=== PATIENT | female | born 1955 | race Caucasian/White ===

== ENCOUNTER → 2018-04-09 | Outpatient (CLI) | payer MEDICARE, OTHER ==
[~2018-04-09] MED LIST: ALEVE220 MG PO; ASPIR 8181 M1 PO; DICLOFENAC SODI75 MG PO; EFFEXOR XR37.5 MG PO; GARLIC1000 MG PO; LIPITOR 20 MG T20 M1 PO; LISINOPRIL20 MG PO; NEURONTIN 400400 M1 PO; PERCOCET 10-321 EACH PO; RESTORIL30 MG PO; ROPINIROLE HCL2 MG PO; VITAMIN C WITH500 MG PO; VITAMIN D3400 UNIT PO
== END ==
LOC: M.MRI 08:02
DX: M47.897 Other spondylosis, lumbosacral region (principal)

== ENCOUNTER 2018-05-04 17:05 | Inpatient (IN) | payer MEDICARE, OTHER ==
[~2018-05-04] VITALS: Ht 154.9 cm; Wt 94.3 kg
[2018-05-04 17:10] VITALS: BP 119/65
[2018-05-04] MEDS ORDERED: ALEVE220 MG PO (17:21)
[2018-05-04] MEDS ORDERED: LISINOPRIL20 MG PO (17:21)
[2018-05-04] MEDS ORDERED: EFFEXOR XR37.5 MG PO (17:21)
[2018-05-04] MEDS ORDERED: VITAMIN D3400 UNIT PO (17:22)
[2018-05-04] MEDS ORDERED: DICLOFENAC SODI75 MG PO (17:22)
[2018-05-04] MEDS ORDERED: NEURONTIN 400400 M1 PO (17:22)
[2018-05-04] MEDS ORDERED: GARLIC1000 MG PO (17:22)
[2018-05-04] MEDS ORDERED: RESTORIL30 MG PO (17:23)
[2018-05-04] MEDS ORDERED: PERCOCET 10-321 EACH PO (17:23)
[2018-05-04] MEDS ORDERED: VITAMIN C WITH500 MG PO (17:23)
[2018-05-04 17:26] LABS: ABSOLUTE EOSINOPHILS 0.1 thou/uL (0.0-0.7); ABSOLUTE LYMPHOCYTES 1.4 thou/uL (0.8-5.3); ABSOLUTE MONOCYTES 0.3 thou/uL (0.0-1.2); ABSOLUTE NEUTROPHILS 3.3 thou/uL (1.6-8.1); BASOPHILS 0.5 %; EOSINOPHILS 2.8 %; HEMATOCRIT 38.7 % (37.0-47.0); HEMOGLOBIN 12.6 gm/dL (12.0-15.0); LYMPHOCYTES 26.9 %; MCH 29.9 pg (26.0-34.0); MCHC 32.6 g/dL (28.0-37.0); MCV 91.6 fL (80.0-100.0); MONOCYTES 5.4 %; MPV 8.4 fl. (7.2-11.1); NUCLEATED RBCS 0 /100WBC; PLATELET COUNT* 160 thou/uL (150-400); POLYS 64.4 %; RBC 4.22 mil/uL (4.20-5.00); WBC 5.2 thou/uL (4.0-11.0)
[2018-05-04 17:35] LABS: ANION GAP 7 mmol/L (7-16); BUN 17 mg/dL (7-18); CALCIUM 9.4 mg/dL (8.5-10.1); CHLORIDE 103 mmol/L (98-107); CO2 32 mmol/L (21-32); CREATININE 1.1 mg/dL (0.6-1.3); GLUCOSE 101 mg/dL (70-99); POTASSIUM 3.9 mmol/L (3.5-5.1); SODIUM 142 mmol/L (136-145)
[2018-05-04 17:37] LABS: APTT 25.7 Seconds (25.0-31.3); PROTIME 10.1 Seconds (9.20-11.50)
[2018-05-04 17:51] LABS: ALBUMIN 3.9 g/dL (3.4-5.0); ALKALINE PHOSPHATASE 81 U/L (46-116); CK-MB MASS 2.9 ng/mL (<0.5-3.6); LIPASE 192 U/L (73-393); MAGNESIUM 1.9 mg/dL (1.8-2.4); NT-PRO BRAIN NAT PEPTIDE 285 pg/mL (<300); SGOT 32 U/L (15-37); SGPT 34 U/L (30-65); TOTAL BILIRUBIN 0.5 mg/dL (<0.1-1.0); TOTAL PROTEIN 7.4 g/dL (6.4-8.2); TROPONIN-I LEVEL <0.06 ng/mL (<0.06)
[2018-05-04 19:01] VITALS: BP 123/68
[2018-05-04 19:10] VITALS: BP 107/60
[2018-05-04] MEDS ORDERED: ROPINIROLE HCL2 MG PO (19:37)
[2018-05-04 22:48] LABS: CHOLESTEROL 232 mg/dL (<200); HDL CHOLESTEROL 44 mg/dL (>40); LDL CHOLESTEROL 145 mg/dL (<100); SERUM ASSESSMENT Clear; TC:HDL 5.3 Ratio (Not establshd); TRIGLYCERIDE 216 mg/dL (<150); VLDL 43 mg/dL (<40)
[2018-05-05] VITALS: BP 122/60
[2018-05-05 04:00] VITALS: BP 119/58; BP 124/71
[2018-05-05 08:05] VITALS: BP 113/61
[2018-05-05] MEDS ORDERED: LIPITOR 20 MG T20 M1 PO (11:22)
[2018-05-05] MEDS ORDERED: ASPIR 8181 M1 PO (11:22)
--- NOTE | 2018-05-05 15:30 | 2DMMODE ---
[place] [address] 2 D/M-MODE ECHOCARDIOGRAM Name: JARRED DE LEÓN Room: [address] ADM IN [facility]#: [id number] Admission: 05/04/18 Attend Phys: Danna Tsang Discharge: Date of : 53 Date of Service: 05/05/18 1530 Report #: [id number] THIS REPORT FOR: //name// APPROVED REPORT Study performed: 05/05/2018 14:29:48 EXAM: Comprehensive 2D, Doppler, and color-flow Echocardiogram Patient Location: In-Patient Room #: [facility] Status: routine BSA: 1.92 HR: 60 bpm BP: 113/61 mmHg Other Information Study Quality: Fair Indications Dyspnea 2D Dimensions IVSd: 11.01 (7-11mm) LVOT Diam: 20.11 (18-24mm) LVDd: 53.70 mm PWd: 9.27 (7-11mm) Ascending Ao: 32.93 (22-36mm) LVDs: 27.87 (25-40mm) Aortic Root: 25.98 mm Volumes Left Atrial Volume (Systole) LA ESV Index: 18.10 mL/m2 Aortic Valve AoV Peak Angus.: 1.61 m/s AO Peak Gr.: 10.33 mmHg LVOT Max P.82 mmHg AO Mean Gr.: 5.47 mmHg LVOT Mean P.70 mmHg LVOT Max V: 1.21 m/s AO V2 VTI: 33.88 cm LVOT Mean V: 0.74 m/s PRISCILLA (VTI): 2.70 cm2 LVOT V1 VTI: 28.81 cm Mitral Valve E/A Ratio: 0.91 MV Decel. Time: 140.89 ms MV E Max Angus.: 0.65 m/s MV PHT: 40.[place] [address] 2 D/M-MODE ECHOCARDIOGRAM Name: JARRED DE LEÓN Room: [address] IN .R.#: [id number] Admission: 05/04/18 Attend Phys: Danna Tsang Discharge: Date of : 53 Date of Service: 05/05/18 1530 Report #: [id number] MVA (PHT): 5.38 cm2 TDI E/Lateral E': 5.91 E/Medial E': 7.22 Medial E' Angus.: 0.09 m/s Lateral E' Angus.: 0.11 m/s Pulmonary Valve PV Peak Angus.: 0.86 m/s PV Peak Gr.: 2.99 mmHg Tricuspid Valve RAP Estimate: 5.00 mmHg TR Peak Gr.: 23.50 mmHg RVSP: 28.50 mmHg PA Pressure: 28.50 mmHg Left Ventricle The left ventricle is normal size. There is normal LV segmental wall motion. There is normal left ventricular wall thickness. Left ventricular systolic function is normal. The left ventricular ejection fraction is within the normal range. LVEF is 55-60%. The left ventricular diastolic function is normal. Right Ventricle The right ventricle is normal size. The right ventricular systolic function is normal. Atria The left atrium size is normal. The right atrium size is normal. Aortic Valve The aortic valve is normal in structure. No aortic regurgitation is present. There is no aortic valvular stenosis. Mitral Valve The mitral valve is normal in structure. There is no mitral valve regurgitation noted. No evidence of mitral valve stenosis. Tricuspid Valve The tricuspid valve is normal in structure. Mild tricuspid regurgitation. Pulmonic Valve The pulmonary valve is normal in structure. There is no pulmonic [place]vular [place] [address] 2 D/M-MODE ECHOCARDIOGRAM Name: JARRED DE LEÓN Room: [address] IN [facility]#: [id number] Admission: 05/04/18 Attend Phys: Danna Tsang Discharge: Date of : 53 Date of Service: 05/05/18 1530 Report #: [id number] Great Vessels The aortic root is normal in size. IVC is normal in size and collapses >50% with inspiration. Pericardium There is no pericardial effusion. <Conclusion> The left ventricle is normal size. There is normal left ventricular wall thickness. Left ventricular systolic function is normal. The left ventricular ejection fraction is within the normal range. LVEF is 55-60%. The left ventricular diastolic function is normal. The right ventricle is normal size. The left atrium size is normal. The aortic valve is normal in structure. The mitral valve is normal in structure. The tricuspid valve is normal in structure. IVC is normal in size and collapses >50% with inspiration. There is no pericardial effusion. There is normal LV segmental wall motion. <ELECTRONICALLY SIGNED> By: Darian Seals MD, FACC 05/05/18 153 29 29 Darian Seals MD, FACC /INF
[2018-05-05 16:00] VITALS: BP 114/80
--- NOTE | 2018-05-05 16:14 | EKG ---
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1955 Requested By: Orlando Ly Order Number: [id number] MD: Darian Seals Measurements Intervals [place] Rate: 66 P: 45 PA: 65 QRS: -29 QRSD: 103 T: 32 QT: 409 QTc: 429 Interpretive Statements Sinus rhythm Short PA interval Borderline left axis deviation Low voltage, precordial leads Baseline wander in lead(s) V1 No previous ECG available for comparison Electronically Signed On 05-05-2018 16:14:31 [employer] by Darian Seals [email or web address] <ELECTRONICALLY SIGNED> By: Darian Seals MD, [facility] 05/05/18 1614 171 171 Darian Seals MD, [facility] /EPI
--- NOTE | 2018-05-05 16:17 | EKG ---
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 : 1955 Requested By: Orlando Ly Order Number: [id number] Lena MD: Darian Seals Measurements Intervals [place] Rate: 57 P: -28 OR: 118 QRS: -28 QRSD: 101 T: -26 QT: 461 QTc: 449 Interpretive Statements Sinus rhythm Borderline short OR interval Borderline left axis deviation Low voltage, precordial leads Consider anterior infarct Borderline T abnormalities, inferior leads Lead(s) II were not used for morphology analysis Baseline wander in lead(s) V5 No previous ECG available for comparison Electronically Signed On 05-05-2018 16:17:38 [employer]HOU[employer] by Darian Seals [email or web address] <ELECTRONICALLY SIGNED> By: Darian Seals MD, FACC 05/05/18 1617 0113 Darian Seals MD, FACC /EPI
[2018-05-05 17:07] LABS: GLYCOHEMOGLOBIN (HGB A1C) 5.7 % (4.8-5.6)
[2018-05-05 20:00] VITALS: BP 111/63
[2018-05-06] VITALS: BP 109/59
[2018-05-06 04:00] VITALS: BP 107/54
[2018-05-06 08:00] VITALS: BP 105/49
[2018-05-06 12:00] VITALS: BP 108/61
[2018-05-06 16:00] VITALS: BP 118/68
--- NOTE | 2018-05-06 17:26 | CARDNUC ---
[place] [address] CARDIAC NUCLEAR IMAGING REPORT Name: JARRED DE LEÓN Room: [address] IN [facility]#: [id number] Admission: 05/04/18 Attend Phys: Danna Tsang Discharge: Date of : 53 Date of Service: 05/06/18 1726 Report #: [id number] THIS REPORT FOR: //name// APPROVED REPORT Imaging Protocol: Stress Tc-99m/Rest Tc-99m 2 days Study performed: 05/04/2018 21:31:00 Indication: Chest pain Patient Location: In-Patient Room #: 206 Stress Tech: Christy Lewis Stress Nurse: Eli Roman RN NM Tech:TOREY Wilcox Ht: 5 ft 1 in Wt: 210 lbs BSA: 1.93 m2 BMI: 39.67 Medical History Medical History: hypertension Medications: lisinopril Allergies: sulfa Cardiac Risk Factors: age, hypertension, family hx Previous Cardiac Procedures: none Exercise History: Sedentary Resting Data Rest SPECT myocardial perfusion imaging was performed in supine position 30 minutes following the intravenous injection of 38.8 mCi of Tc-99m Sestamibi. Time of rest injection: 1000 Date: 05/06/2018 Time of rest imagin The images were gated to evaluate regional wall motion and calculate left ventricular ejection fraction. Administration Route: IV Administration Site: Left Arm Pharmacologic Stress Pharmacologic stress test was performed by injecting Regadenoson 0.4 mg IV push over 10-15 seconds immediately followed by the intravenous injection of 36.2 mCi of Tc-99m Sestamibi. Time of stress injection: 1210 Date: 05/05/2018 Time of stress imagin Administration Route: IV Administration Site: [place] [address] CARDIAC NUCLEAR IMAGING REPORT Name: JARRED DE LEÓN Room: [address] IN M.R.#: [id number] Admission: 05/04/18 Attend Phys: Danna Tsang Discharge: Date of : 53 Date of Service: 05/06/18 1726 Report #: [id number] Gated Stress SPECT was performed 40 minutes after stress injection. The images were gated to evaluate regional wall motion and calculate left ventricular ejection fraction. Prone imaging was performed. Stress Test Details Stress Test: Pharmacologic stress testing performed using 0.4 mg of regadenoson per 5 mL given IV over 10 seconds. Reason for pharmacologic stress test: physical limitation. HR Max Heart Rate (APMHR): 156 bpm Resting HR: 61 bpm Target HR (85% APMHR): 132 bpm Max HR Achieved: 83 bpm % of APMHR: 53 Recovery HR: 81 bpm BP Resting BP: 138/85 mmHg Max BP: 130/67 mmHg Recovery BP: 137/72 mmHg ECG Resting ECG: Sinus Rhythm, normal EKG Stress ECG: Sinus Rhythm, normal EKG ST Change: None Arrhythmia: None Recovery ECG: Sinus Rhythm, normal EKG Recovery ST Change: None Recovery Arrhythmia: None Clinical Reason for Termination: Completed protocol The patient tolerated Lexiscan without significant symptoms. Nurse Comments pt has bad back and legs Stress ECG Conclusion The baseline 12-lead EKG shows normal sinus rhythm with no significant ST or T wave abnormality. EKGs post exercise showed sinus rhythm with no significant ST or T wave changes when compared to baseline. Study Quality Study: Good Artifact: [place] [address] CARDIAC NUCLEAR IMAGING REPORT Name: JARRED DE LEÓN Room: [address] IN [facility]#: [id number] Admission: 05/04/18 Attend Phys: Danna Tsang Discharge: Date of : 53 Date of Service: 05/06/18 1726 Report #: [id number] Study Data At rest, the left ventricular ejection fraction was 73%.. Post stress, the left ventricular ejection was 66%.. Perfusion Normal left ventricular perfusion. Wall Motion Normal left ventricular wall motion. Nuclear Conclusion ECG Findings: negative for ischemia Clinical Findings: negative for ischemia Nuclear Findings: negative for ischemia Exercise Capacity: not assessed Left Ventricular Function: normal Risk Study: low Myocardial perfusion images show normal perfusion at rest and post stress. Gated images show normal left ventricular systolic function. This is a low risk. <Conclusion> The baseline 12-lead EKG shows normal sinus rhythm with no significant ST or T wave abnormality. EKGs post exercise showed sinus rhythm with no significant ST or T wave changes when compared to baseline. <ELECTRONICALLY SIGNED> By: Tico Coulter MD, FACC 05/06/181725 25 25 Tico Coulter MD, FACC /INF
[2018-05-06 18:09] VITALS: BP 118/68
== END 2018-05-06 18:46 | disposition home or self-care (01) | DRG 313 ==
LOC: M.ERS 17:05 → M.2W 18:02 → M.TBA-ER 18:02 → M.2W 19:01
PROVIDERS: Family Medicine; ADMIT Internal Medicine
DX: R07.89 Other chest pain (principal); M79.18 Myalgia, other site; I10 Essential (primary) hypertension; F17.210 Nicotine dependence, cigarettes, uncomplicated; G25.81 Restless legs syndrome; E66.9 Obesity, unspecified; Z68.39 Body mass index [BMI] 39.0-39.9, adult; Z90.710 Acquired absence of both cervix and uterus; Z90.49 Acquired absence of other specified parts of digestive tract; Z79.899 Other long term (current) drug therapy; Z88.1 Allergy status to other antibiotic agents; Z88.2 Allergy status to sulfonamides; Z82.49 Family history of ischemic heart disease and other diseases of the circulatory system

== ENCOUNTER → 2019-06-20 | Outpatient (CLI) | payer MEDICARE, OTHER | LOC: M.MRI 07:05 | DX: S43.491A Other sprain of right shoulder joint, initial encounter (principal); M19.011 Primary osteoarthritis, right shoulder; M25.711 Osteophyte, right shoulder; M75.81 Other shoulder lesions, right shoulder; M25.411 Effusion, right shoulder; X58.XXXA Exposure to other specified factors, initial encounter; Y93.89 Activity, other specified; Y92.89 Other specified places as the place of occurrence of the external cause; Y99.8 Other external cause status ==

== ENCOUNTER → 2019-12-08 | Outpatient (CLI) | payer OTHER | LOC: M.CT 10:46 | PROVIDERS: ATTEND Internal Medicine Cardiovascular Disease | DX: R94.31 Abnormal electrocardiogram [ECG] [EKG] (principal) ==

== ENCOUNTER → 2020-04-10 | Outpatient (CLI) | payer MEDICARE, OTHER | LOC: M.MRI 07:03 | PROVIDERS: ATTEND Orthopaedic Surgery | DX: M51.37 Other intervertebral disc degeneration, lumbosacral region (principal); M43.09 Spondylolysis, multiple sites in spine; M47.817 Spondylosis without myelopathy or radiculopathy, lumbosacral region; M48.07 Spinal stenosis, lumbosacral region; M51.25 Other intervertebral disc displacement, thoracolumbar region; M25.78 Osteophyte, vertebrae ==

== ENCOUNTER → 2020-05-16 | Outpatient (CLI) | payer MEDICARE, OTHER ==
[~2020-05-16] MED LIST changes: +FUROSEMIDE 20 M20 MG PO; +PROZAC20 M1 PO; +ROPINIROLE HCL2 M1 PO
== END ==
LOC: M.PC 08:09
PROVIDERS: ATTEND Physical Medicine & Rehabilitation
DX: M51.16 Intervertebral disc disorders with radiculopathy, lumbar region (principal); M48.061 Spinal stenosis, lumbar region without neurogenic claudication; M47.26 Other spondylosis with radiculopathy, lumbar region

== ENCOUNTER → 2020-05-21 | Outpatient (CLI) | payer MEDICARE, OTHER | END | disposition home or self-care (01) | LOC: M.PC 08:05 | PROVIDERS: ATTEND Physical Medicine & Rehabilitation | DX: M54.5 Low back pain (principal); M51.16 Intervertebral disc disorders with radiculopathy, lumbar region; M47.26 Other spondylosis with radiculopathy, lumbar region; M79.605 Pain in left leg; I10 Essential (primary) hypertension; Z90.49 Acquired absence of other specified parts of digestive tract; Z90.710 Acquired absence of both cervix and uterus; Z98.890 Other specified postprocedural states; Z79.899 Other long term (current) drug therapy ==

== ENCOUNTER → 2020-06-13 | Outpatient (CLI) | payer MEDICARE, OTHER | LOC: M.PC 08:17 | PROVIDERS: ATTEND Physical Medicine & Rehabilitation | DX: M51.16 Intervertebral disc disorders with radiculopathy, lumbar region (principal); M48.061 Spinal stenosis, lumbar region without neurogenic claudication; M47.26 Other spondylosis with radiculopathy, lumbar region ==

== ENCOUNTER → 2020-07-02 | Outpatient (CLI) | payer MEDICARE, OTHER | END | disposition home or self-care (01) | LOC: M.PC 08:35 | PROVIDERS: ATTEND Physical Medicine & Rehabilitation | DX: M54.5 Low back pain (principal); M54.16 Radiculopathy, lumbar region ==

== ENCOUNTER → 2020-07-16 | Outpatient (CLI) | payer MEDICARE, OTHER | LOC: M.PC 08:30 | PROVIDERS: ATTEND Physical Medicine & Rehabilitation | DX: M51.16 Intervertebral disc disorders with radiculopathy, lumbar region (principal); M47.26 Other spondylosis with radiculopathy, lumbar region; M48.061 Spinal stenosis, lumbar region without neurogenic claudication; M96.1 Postlaminectomy syndrome, not elsewhere classified ==

== ENCOUNTER → 2020-07-23 | Outpatient (CLI) | payer MEDICARE, OTHER | END | disposition home or self-care (01) | LOC: M.PC 08:49 | PROVIDERS: ATTEND Physical Medicine & Rehabilitation | DX: M47.816 Spondylosis without myelopathy or radiculopathy, lumbar region (principal); M54.5 Low back pain; G89.29 Other chronic pain; I10 Essential (primary) hypertension; Z98.890 Other specified postprocedural states; Z79.899 Other long term (current) drug therapy; Z90.49 Acquired absence of other specified parts of digestive tract; Z90.710 Acquired absence of both cervix and uterus ==

== ENCOUNTER → 2020-08-13 | Outpatient (CLI) | payer MEDICARE, OTHER | LOC: M.PC 07:54 | PROVIDERS: ATTEND Physical Medicine & Rehabilitation | DX: M51.16 Intervertebral disc disorders with radiculopathy, lumbar region (principal); M47.26 Other spondylosis with radiculopathy, lumbar region; M17.0 Bilateral primary osteoarthritis of knee ==

== ENCOUNTER → 2020-08-29 | Outpatient (CLI) | payer MEDICARE, OTHER | END | disposition home or self-care (01) | LOC: M.PC 08:08 | PROVIDERS: ATTEND Physical Medicine & Rehabilitation | DX: M54.5 Low back pain (principal); M47.816 Spondylosis without myelopathy or radiculopathy, lumbar region; M51.36 Other intervertebral disc degeneration, lumbar region; M48.061 Spinal stenosis, lumbar region without neurogenic claudication; M17.0 Bilateral primary osteoarthritis of knee; I10 Essential (primary) hypertension; Z90.49 Acquired absence of other specified parts of digestive tract; Z90.710 Acquired absence of both cervix and uterus; Z98.890 Other specified postprocedural states; Z79.899 Other long term (current) drug therapy ==

== ENCOUNTER → 2020-09-12 | Outpatient (CLI) | payer MEDICARE, OTHER | LOC: M.PC 09:16 | PROVIDERS: ATTEND Physical Medicine & Rehabilitation | DX: M17.0 Bilateral primary osteoarthritis of knee (principal); M54.5 Low back pain; M51.16 Intervertebral disc disorders with radiculopathy, lumbar region; M47.27 Other spondylosis with radiculopathy, lumbosacral region; Z79.899 Other long term (current) drug therapy ==

== ENCOUNTER → 2020-09-19 | Outpatient (CLI) | payer MEDICARE, OTHER | END | disposition home or self-care (01) | LOC: M.PC 09:15 | PROVIDERS: ATTEND Physical Medicine & Rehabilitation | DX: M17.0 Bilateral primary osteoarthritis of knee (principal); M25.561 Pain in right knee; M25.562 Pain in left knee; I10 Essential (primary) hypertension; Z90.710 Acquired absence of both cervix and uterus; Z98.890 Other specified postprocedural states; Z79.899 Other long term (current) drug therapy; Z90.49 Acquired absence of other specified parts of digestive tract; Z88.2 Allergy status to sulfonamides; Z88.8 Allergy status to other drugs, medicaments and biological substances ==

== ENCOUNTER → 2020-10-01 | Outpatient (CLI) | payer MEDICARE, OTHER | LOC: M.LAB 05:55 | PROVIDERS: ATTEND Anesthesiology | DX: E87.6 Hypokalemia (principal) ==

== ENCOUNTER → 2020-10-17 | Outpatient (CLI) | payer MEDICARE, OTHER | LOC: M.PC 09:04 | PROVIDERS: ATTEND Physical Medicine & Rehabilitation | DX: M51.16 Intervertebral disc disorders with radiculopathy, lumbar region (principal); M47.26 Other spondylosis with radiculopathy, lumbar region; M17.0 Bilateral primary osteoarthritis of knee; M54.5 Low back pain; M25.561 Pain in right knee; M25.562 Pain in left knee ==

== ENCOUNTER → 2020-10-29 | Outpatient (CLI) | payer MEDICARE, OTHER ==
[~2020-10-29] MED LIST changes: +MACROBID 100 M100 M2 PO; +ZESTRIL10 MG PO
== END | disposition home or self-care (01) ==
LOC: M.PC 09:16
PROVIDERS: ATTEND Physical Medicine & Rehabilitation
DX: M17.0 Bilateral primary osteoarthritis of knee (principal); M25.561 Pain in right knee; M25.562 Pain in left knee; I10 Essential (primary) hypertension; Z98.890 Other specified postprocedural states; Z79.899 Other long term (current) drug therapy; Z90.710 Acquired absence of both cervix and uterus; Z90.49 Acquired absence of other specified parts of digestive tract

== ENCOUNTER → 2020-11-07 | Outpatient (CLI) | payer MEDICARE, OTHER | LOC: M.PC 09:02 | PROVIDERS: ATTEND Physical Medicine & Rehabilitation | DX: M47.27 Other spondylosis with radiculopathy, lumbosacral region (principal); M48.061 Spinal stenosis, lumbar region without neurogenic claudication; M51.16 Intervertebral disc disorders with radiculopathy, lumbar region; M17.0 Bilateral primary osteoarthritis of knee; I10 Essential (primary) hypertension; Z90.49 Acquired absence of other specified parts of digestive tract; Z90.710 Acquired absence of both cervix and uterus; Z98.890 Other specified postprocedural states ==

== ENCOUNTER → 2020-12-17 | Outpatient (CLI) | payer MEDICARE, OTHER | LOC: M.PC 09:32 | PROVIDERS: ATTEND Physical Medicine & Rehabilitation | DX: M51.16 Intervertebral disc disorders with radiculopathy, lumbar region (principal); M47.26 Other spondylosis with radiculopathy, lumbar region; M17.0 Bilateral primary osteoarthritis of knee; Z79.891 Long term (current) use of opiate analgesic; Z79.899 Other long term (current) drug therapy ==